=== PATIENT | male | born 1935 | race Caucasian/White ===

== ENCOUNTER → 2016-10-18 | Outpatient (CLI) | payer OTHER | END | disposition home or self-care (01) | LOC: CFH 08:35 | PROVIDERS: ATTEND Internal Medicine | DX: R91.8 Other nonspecific abnormal finding of lung field (principal); Z90.2 Acquired absence of lung [part of] | CPT/HCPCS: 71250 ==

== ENCOUNTER 2016-10-28 09:50 | Day surgery (SDC) | payer OTHER ==
[2016-10-27 10:10] LABS: ASPARTATE AMINO TRANSFERASE 8 U/L (15-37); BLOOD UREA NITROGEN 24 mg/dL (7-18)
[~2016-10-28] VITALS: Ht 172.7 cm; Wt 74.0 kg
[~2016-10-28 09:50] MED LIST: GABA600T2 PO; LISI1TAB3 PO; TRAV5DRO EACHEYE
[2016-10-28] MEDS ORDERED: LACTATED RINGERS 1,000 ML IV SCH (10:10)
[2016-10-28 10:16] VITALS: BP 128/80
[2016-10-28] MEDS ORDERED: LIDOCAINE 1%, 2ML ONE (10:17)
[2016-10-28] MEDS ORDERED: LIDOCAINE 1%, 2ML SQ PRN (10:30)
[2016-10-28] MEDS ORDERED: FENTANYL PF 100 MCG/2ML IV PRN (14:00)
[2016-10-28] MEDS ORDERED: PROMETHAZINE 25 MG/ML, 1ML IV PRN (14:00)
[2016-10-28] MEDS ORDERED: hydrALAzine 20 MG/ML, 1ML IV PRN (14:00)
[2016-10-28] MEDS ORDERED: morphine SULFATE 10 MG/ML, 1ML IV PRN (14:00)
[2016-10-28] MEDS ORDERED: LABETALOL 5MG/ML, 20ML IV PRN (14:00)
[2016-10-28] MEDS ORDERED: ONDANSETRON 2MG/ML, 2ML IVPush PRN (14:00)
[2016-10-28] MEDS ORDERED: ACETAMINOPHEN 325 MG TABLET PO PRN (14:00)
[2016-10-28] MEDS ORDERED: OXYcodone 5 MG/5 ML ORAL.SOL UDC PO PRN (14:00)
[2016-10-28] MEDS ORDERED: NEOSTIGMINE 1 MG/ML, 10ML ONE (16:18)
[2016-10-28] MEDS ORDERED: DEXAMETHASONE 4 MG/ML, 1ML ONE (16:18)
[2016-10-28] MEDS ORDERED: GLYCOPYRROLATE 0.2MG/1ML ONE (16:18)
[2016-10-28] MEDS ORDERED: ROCURONIUM 10 MG/ML ONE (16:18)
[2016-10-28] MEDS ORDERED: ONDANSETRON 2MG/ML, 2ML ONE (16:18)
[2016-10-28] MEDS ORDERED: PROPOFOL 10 MG/ML, 20ML ONE (16:18)
== END 2016-10-28 15:30 | disposition home or self-care (01) ==
LOC: OUT 09:50
PROVIDERS: ATTEND Internal Medicine
DX: J98.4 Other disorders of lung (principal); R91.8 Other nonspecific abnormal finding of lung field; Z88.1 Allergy status to other antibiotic agents
CPT/HCPCS: 31626; 31627; 31628; 36415; 71010; 80053; 88172; 88173; 88305; 88312; 88341; 88342; 93005; A4648; J1100; J2405; J2704; J2710; J3010; J3490; J7120; 31629; 76000; G0461

== ENCOUNTER → 2016-11-17 | Outpatient (CLI) | payer OTHER ==
[~2016-11-17] MED LIST changes: +GADOBUTROL 7.5 MMOL/7.5 ML PFS ONE
== END | disposition home or self-care (01) ==
LOC: CFH 08:25
PROVIDERS: ATTEND Internal Medicine
DX: I67.82 Cerebral ischemia (principal); R90.82 White matter disease, unspecified; R91.8 Other nonspecific abnormal finding of lung field
CPT/HCPCS: 70553; A9585

== ENCOUNTER 2016-11-30 08:47 | Day surgery (SDC) | payer OTHER ==
[~2016-11-30] VITALS: Ht 170.2 cm; Wt 73.0 kg
[~2016-11-30 08:47] MED LIST changes: -GADOBUTROL 7.5 MMOL/7.5 ML PFS ONE
[2016-11-30] MEDS ORDERED: SODIUM CHLORIDE 0.9% 1,000 ML IV SCH (09:15)
[2016-11-30 09:31] VITALS: BP 132/93
[2016-11-30] MEDS ORDERED: HYDR-879 PO (09:36)
== END 2016-11-30 14:40 ==
LOC: OUT 08:47
PROVIDERS: ATTEND Internal Medicine Hematology & Oncology
DX: C34.31 Malignant neoplasm of lower lobe, right bronchus or lung (principal); Z88.1 Allergy status to other antibiotic agents; Z87.442 Personal history of urinary calculi; Z98.890 Other specified postprocedural states; Z98.49 Cataract extraction status, unspecified eye; Z72.89 Other problems related to lifestyle
CPT/HCPCS: 32405; 71010; 77012; 88305; 99156; J2250; J3010; J7030; 99157; J2310

== ENCOUNTER 2016-12-27 19:48 | Inpatient (IN) | payer OTHER ==
[~2016-12-27] VITALS: Ht 170.2 cm; Wt 81.7 kg
[~2016-12-27 19:48] MED LIST changes: +HYDR-879 PO; +MORP10CA7 PO
[2016-12-27] MEDS ORDERED: LEVOFLOXACIN/PMX 750MG/150ML 150 ML IVPB ONE (20:00)
[2016-12-27] MEDS ORDERED: SODIUM CHLORIDE FLUSH 10ML SYR IVF ONE (20:00)
[2016-12-27] MEDS ORDERED: SODIUM CHLORIDE 0.9% 1,000ML IVBOLUS ONE ×3 (20:00→22:00)
[2016-12-27] MEDS ORDERED: ACETAMINOPHEN 650 MG SUPP PR ONE (20:00)
[2016-12-27] MEDS ORDERED: ONDANSETRON 2MG/ML, 2ML IVPush ONE (20:00)
[2016-12-27] MEDS ORDERED: PIPERACILLIN/TAZO/PMX 3.375GM 50 ML IVPB ONE (20:00)
[2016-12-27] MEDS ORDERED: VANCOMYCIN 1,500 MG in SODIUM CHLORIDE 0.9% 250 ML IV ONE (20:00)
[2016-12-27] MEDS ORDERED: VANCOMYCIN PER PHARMACY IV ONE (20:00)
[2016-12-27] MEDS ORDERED: PIPERACILLIN/TAZO/PMX 3.375GM 50 ML ONE (20:28)
[2016-12-27] MEDS ORDERED: LEVOFLOXACIN/PMX 750MG/150ML 150 ML ONE (20:28)
[2016-12-27] MEDS ORDERED: ONDANSETRON 2MG/ML, 2ML ONE (20:29)
[2016-12-27] MEDS ORDERED: ACETAMINOPHEN 325 MG TABLET ONE (20:29)
[2016-12-27] MEDS ORDERED: ACETAMINOPHEN 650 MG SUPP ONE (20:33)
[2016-12-27 20:39] LABS: HEMATOCRIT 33.4 % (39.2-51.8); HEMOGLOBIN 10.7 g/dL (13.7-18.0); WHITE BLOOD COUNT 18.8 x10^3/uL (3.4-10)
[2016-12-27 20:44] LABS: ABG COLLECTION SITE LEFT RADIAL; COLLATERAL CIRCULATION TESTING NORMAL
[2016-12-27 20:47] LABS: ASPARTATE AMINO TRANSFERASE 67 U/L (15-37); BLOOD UREA NITROGEN 64 mg/dL (7-18)
[2016-12-27 20:51] LABS: IS PT STATUS REG ER OR PRE ER? YES
[2016-12-27 20:56] LABS: DIFF TOTAL CELLS COUNTED 100 CELL DIFF
[2016-12-27] MEDS ORDERED: LIDOCAINE 1%, 20ML ONE (20:59)
[2016-12-27 21:01] LABS: LARGE PLATELETS 1+; VERIFY COUNTS? YES
[2016-12-27] MEDS ORDERED: HEPARIN 5,000 UNITS/ML, 1ML IV ONE (21:30)
[2016-12-27] MEDS ORDERED: FUROSEMIDE 40 MG/4 ML IV ONE (21:30)
[2016-12-27] MEDS ORDERED: HEPARIN 5,000 UNITS/ML, 1ML ONE (21:33)
[2016-12-27] MEDS ORDERED: HEPARIN 25,000 UNITS/500ML PMX 500 ML ONE (21:33)
[2016-12-27] MEDS ORDERED: FUROSEMIDE 40 MG/4 ML ONE (21:33)
[2016-12-27] MEDS ORDERED: NOREPINEPHRINE 4 MG in SODIUM CHLORIDE 0.9% 246 ML IV PRN ×2 (21:52→22:00)
[2016-12-27] MEDS: HEPARIN 25,000 UNITS/500ML PMX 500 ML IV PRN (21:55)
[2016-12-27] MEDS ORDERED: PHARMACY MAY ADJ FOR RENAL FX MC PRN (22:00)
[2016-12-27] MEDS ORDERED: SODIUM CHLORIDE 0.9%, 500ML IVBOLUS PRN ×2 (22:00)
[2016-12-27] MEDS ORDERED: VANCOMYCIN PER PHARMACY MC PRN (22:00)
[2016-12-27] MEDS ORDERED: PHARMACOKINETIC MONITORING MC PRN (23:30)
[2016-12-27] MEDS: ATORVASTATIN 80 MG TABLET PO SCH (23:49)
[2016-12-27] MEDS: HYDROCORTISONE 100 MG INJ. IV SCH (23:49)
[2016-12-27] MEDS: PANTOPRAZOLE 40 MG IV IV SCH (23:49)
[2016-12-28] VITALS: BP 76/42
[2016-12-28 01:45] LABS: ABG COLLECTION SITE RIGHT BRACHIAL
[2016-12-28 04:26] LABS: ABG COLLECTION SITE RIGHT RADIAL; COLLATERAL CIRCULATION TESTING NORMAL
[2016-12-28] MEDS ORDERED: ALBUTEROL SULFATE 2.5 MG/3 ML NPPB PRN ×2 (04:30→18:00)
[2016-12-28 04:43] LABS: IS PT STATUS REG ER OR PRE ER? NO
[2016-12-28 04:51] LABS: DIFF TOTAL CELLS COUNTED 100 CELL DIFF
[2016-12-28 04:53] LABS: BLOOD UREA NITROGEN 63 mg/dL (7-18); VERIFY COUNTS? YES
[2016-12-28 05:19] LABS: ASPARTATE AMINO TRANSFERASE 82 U/L (15-37); FERRITIN 638.5 ng/mL (26-388); TOTAL IRON BINDING CAPACITY 186 mcg/dL (250-450)
[2016-12-28] MEDS: HYDROCORTISONE 100 MG INJ. IV SCH ×3 (06:08→20:44)
[2016-12-28] MEDS: HEPARIN 5,000 UNITS/ML, 1ML IV PRN ×3 (06:09→20:43)
[2016-12-28] MEDS: ALBUTEROL SULFATE 2.5 MG/3 ML NPPB SCH ×2 (06:23→10:14)
[2016-12-28] MEDS ORDERED: TRAVOPROST OPHTH 0.004%, 2.5ML EACHEYE SCH (09:00)
[2016-12-28] MEDS ORDERED: PIPERACILLIN/TAZO/PMX 4.5GM 50 ML IVPB SCH (09:00)
[2016-12-28 11:04] LABS: IS PT STATUS REG ER OR PRE ER? NO
[2016-12-28] MEDS ORDERED: IRON SUCROSE COMPLEX 100MG/5ML IV ONE (14:00)
[2016-12-28] MEDS: NOREPINEPHRINE 4 MG in SODIUM CHLORIDE 0.9% 246 ML IV PRN ×2 (14:39→22:47)
[2016-12-28] MEDS: PIPERACILLIN/TAZO(ZOSYN) 2.25 GM in NS 50 ML IVPB SCH ×2 (16:49→22:43)
[2016-12-28 19:58] LABS: BLOOD UREA NITROGEN 57 mg/dL (7-18)
[2016-12-28] MEDS: SODIUM CHLORIDE 0.9% 1,000 ML IV SCH (20:44)
[2016-12-28] MEDS: PANTOPRAZOLE 40 MG IV IV SCH (20:44)
[2016-12-28] MEDS: ATORVASTATIN 80 MG TABLET PO SCH (20:44)
[2016-12-28] MEDS: TRAVOPROST OPHTH 0.004%, 2.5ML EACHEYE SCH (20:46)
[2016-12-28] MEDS: HEPARIN 25,000 UNITS/500ML PMX 500 ML IV PRN (22:46)
[2016-12-29] MEDS: HEPARIN 5,000 UNITS/ML, 1ML IV PRN (02:23)
[2016-12-29] MEDS: PIPERACILLIN/TAZO(ZOSYN) 2.25 GM in NS 50 ML IVPB SCH ×3 (04:49→17:00)
[2016-12-29] MEDS: SODIUM CHLORIDE 0.9% 1,000 ML IV SCH ×2 (04:50→13:37)
[2016-12-29 05:58] LABS: HEMATOCRIT 32.1 % (39.2-51.8); HEMOGLOBIN 10.4 g/dL (13.7-18.0); WHITE BLOOD COUNT 18.6 x10^3/uL (3.4-10)
[2016-12-29 06:10] LABS: ASPARTATE AMINO TRANSFERASE 32 U/L (15-37); BLOOD UREA NITROGEN 45 mg/dL (7-18)
[2016-12-29] MEDS: HYDROCORTISONE 100 MG INJ. IV SCH ×3 (06:41→22:09)
[2016-12-29] MEDS ORDERED: BISACODYL 10 MG SUPP PR PRN (09:00)
[2016-12-29] MEDS ORDERED: DOCUSATE 50 MG/5 ML, 10ML UDC PO SCH (09:00)
[2016-12-29] MEDS ORDERED: LACTULOSE 20 GM/30 ML UDC PO PRN (09:00)
[2016-12-29] MEDS: HYDROcodone/APAP 5/325 TABLET PO PRN ×3 (10:29→22:09)
[2016-12-29] MEDS: VANCOMYCIN 1,500 MG in SODIUM CHLORIDE 0.9% 250 ML IV SCH (13:37)
[2016-12-29] MEDS: PIPERACILLIN/TAZO/PMX 3.375GM 50 ML IV SCH ×2 (17:44→22:35)
[2016-12-29] MEDS: TRAVOPROST OPHTH 0.004%, 2.5ML EACHEYE SCH (21:00)
[2016-12-29] MEDS: ATORVASTATIN 80 MG TABLET PO SCH (21:13)
[2016-12-29] MEDS: SENNA/DOCUSATE TABLET PO SCH (21:14)
[2016-12-29] MEDS: PANTOPRAZOLE 40 MG IV IV SCH (22:09)
[2016-12-30] MEDS: SODIUM CHLORIDE 0.9% 1,000 ML IV SCH ×2 (01:42→10:53)
[2016-12-30] MEDS: HYDROcodone/APAP 5/325 TABLET PO PRN ×3 (02:20→21:01)
[2016-12-30 04:23] LABS: HEMATOCRIT 32.8 % (39.2-51.8); HEMOGLOBIN 10.6 g/dL (13.7-18.0); WHITE BLOOD COUNT 16.7 x10^3/uL (3.4-10)
[2016-12-30 04:35] LABS: BLOOD UREA NITROGEN 38 mg/dL (7-18)
[2016-12-30 04:41] LABS: ASPARTATE AMINO TRANSFERASE 27 U/L (15-37)
[2016-12-30 04:42] LABS: DIFF TOTAL CELLS COUNTED 100 CELL DIFF
[2016-12-30 04:45] LABS: VERIFY COUNTS? YES
[2016-12-30] MEDS: PIPERACILLIN/TAZO/PMX 3.375GM 50 ML IV SCH ×2 (05:28→11:10)
[2016-12-30] MEDS: HYDROCORTISONE 100 MG INJ. IV SCH (06:02)
[2016-12-30] MEDS: DOCUSATE 100 MG CAPSULE PO SCH (08:38)
[2016-12-30] MEDS: VANCOMYCIN 1,500 MG in SODIUM CHLORIDE 0.9% 250 ML IV SCH (12:40)
[2016-12-30] MEDS ORDERED: BUPIVACAINE/PF-EPI 0.5% 1:200K ONE (13:17)
[2016-12-30 13:42] LABS: OCCBLD OBC PASS
[2016-12-30] MEDS ORDERED: FENTANYL PF 250 MCG/5ML ONE (14:03)
[2016-12-30] MEDS ORDERED: GLYCOPYRROLATE 0.2MG/1ML ONE (14:23)
[2016-12-30] MEDS ORDERED: PROPOFOL 10 MG/ML, 20ML ONE (14:23)
[2016-12-30] MEDS ORDERED: ROCURONIUM 10 MG/ML ONE (14:23)
[2016-12-30] MEDS ORDERED: NEOSTIGMINE 1 MG/ML, 10ML ONE (14:23)
[2016-12-30] MEDS ORDERED: ACETAMINOPHEN 325 MG TABLET PO PRN (14:30)
[2016-12-30] MEDS ORDERED: ONDANSETRON 2MG/ML, 2ML IVPush PRN (14:30)
[2016-12-30] MEDS ORDERED: METOCLOPRAMIDE 5 MG/ML, 2ML IV PRN (14:30)
[2016-12-30] MEDS ORDERED: LABETALOL 5MG/ML, 20ML IV PRN (14:30)
[2016-12-30] MEDS ORDERED: PROMETHAZINE 25 MG/ML, 1ML IV PRN (14:30)
[2016-12-30] MEDS ORDERED: FENTANYL PF 100 MCG/2ML IV PRN (14:30)
[2016-12-30] MEDS ORDERED: hydrALAzine 20 MG/ML, 1ML IV PRN (14:30)
[2016-12-30] MEDS ORDERED: ALBUTEROL SULFATE 2.5 MG/3 ML NPPB PRN (14:30)
[2016-12-30] MEDS ORDERED: OXYcodone 5 MG/5 ML ORAL.SOL UDC PO PRN (14:30)
[2016-12-30] MEDS ORDERED: MEPERIDINE/PF 25MG/0.5ML IVPush PRN (14:30)
[2016-12-30] MEDS ORDERED: FENTANYL PF 100 MCG/2ML ONE (15:36)
[2016-12-30] MEDS ORDERED: ONDANSETRON 2MG/ML, 2ML ONE (15:36)
[2016-12-30] MEDS ORDERED: HYDROmorphone 1 MG/ML, 1ML ONE ×2 (15:36→16:08)
[2016-12-30] MEDS: HYDROmorphone 1 MG/ML, 1ML IV PRN ×4 (15:44→16:29)
[2016-12-30] MEDS: PIPERACILLIN/TAZO/PMX 4.5GM 100 ML IV SCH ×2 (16:58→22:25)
[2016-12-30] MEDS: MORPHINE SULFATE 4 MG/ML, 1ML IV PRN (19:07)
[2016-12-30 20:24] LABS: HEMATOCRIT 31.6 % (39.2-51.8); HEMOGLOBIN 10.2 g/dL (13.7-18.0); WHITE BLOOD COUNT 23.2 x10^3/uL (3.4-10)
[2016-12-30] MEDS: TRAVOPROST OPHTH 0.004%, 2.5ML EACHEYE SCH (21:00)
[2016-12-30] MEDS: SENNA/DOCUSATE TABLET PO SCH (21:00)
[2016-12-30] MEDS: ATORVASTATIN 80 MG TABLET PO SCH (21:01)
[2016-12-30 21:12] LABS: DIFF TOTAL CELLS COUNTED 100 CELL DIFF
[2016-12-30 21:15] LABS: VERIFY COUNTS? YES
[2016-12-30] MEDS: PANTOPRAZOLE 40 MG IV IV SCH (22:25)
[2016-12-31] MEDS: SODIUM CHLORIDE 0.9% 1,000 ML IV SCH ×3 (02:56→23:21)
[2016-12-31] MEDS: HYDROcodone/APAP 5/325 TABLET PO PRN ×5 (03:41→23:21)
[2016-12-31] MEDS: PIPERACILLIN/TAZO/PMX 4.5GM 100 ML IV SCH ×4 (04:52→23:21)
[2016-12-31 05:12] LABS: HEMATOCRIT 28.8 % (39.2-51.8); HEMOGLOBIN 9.4 g/dL (13.7-18.0); WHITE BLOOD COUNT 17.5 x10^3/uL (3.4-10)
[2016-12-31 05:18] LABS: BLOOD UREA NITROGEN 26 mg/dL (7-18)
[2016-12-31] MEDS: DOCUSATE 100 MG CAPSULE PO SCH (07:59)
[2016-12-31 14:24] VITALS: BP 119/76
[2016-12-31] MEDS: MORPHINE SULFATE 4 MG/ML, 1ML IV PRN ×3 (17:34→20:22)
[2016-12-31 20:00] VITALS: BP 120/64
[2016-12-31] MEDS: ATORVASTATIN 80 MG TABLET PO SCH (20:18)
[2016-12-31] MEDS: TRAVOPROST OPHTH 0.004%, 2.5ML EACHEYE SCH (21:00)
[2016-12-31] MEDS: PANTOPRAZOLE 40 MG IV IV SCH (21:57)
[2017-01-01 02:45] VITALS: BP 106/58
[2017-01-01] MEDS: HYDROcodone/APAP 5/325 TABLET PO PRN ×5 (05:16→22:53)
[2017-01-01] MEDS: PIPERACILLIN/TAZO/PMX 4.5GM 100 ML IV SCH ×4 (05:16→22:54)
[2017-01-01 08:18] VITALS: BP 129/76
[2017-01-01 08:40] LABS: HEMATOCRIT 28.6 % (39.2-51.8); HEMOGLOBIN 9.3 g/dL (13.7-18.0); WHITE BLOOD COUNT 17.6 x10^3/uL (3.4-10)
[2017-01-01 08:52] LABS: BLOOD UREA NITROGEN 16 mg/dL (7-18)
[2017-01-01] MEDS ORDERED: POTASSIUM CHLORIDE 20 MEQ TAB.ER.PRT PO ONE (09:30)
[2017-01-01] MEDS: DOCUSATE 100 MG CAPSULE PO SCH (10:21)
[2017-01-01] MEDS: MORPHINE SULFATE 4 MG/ML, 1ML IV PRN ×2 (10:21→20:37)
[2017-01-01] MEDS: SODIUM CHLORIDE 0.9% 1,000 ML IV SCH (10:22)
[2017-01-01 14:15] VITALS: BP 148/80
[2017-01-01 20:30] VITALS: BP 153/94
[2017-01-01] MEDS: PANTOPRAZOLE 40 MG IV IV SCH (20:37)
[2017-01-01] MEDS: ATORVASTATIN 80 MG TABLET PO SCH (20:37)
[2017-01-01] MEDS: TRAVOPROST OPHTH 0.004%, 2.5ML EACHEYE SCH (20:38)
[2017-01-02 00:57] VITALS: BP 128/78
[2017-01-02] MEDS ORDERED: GUAIFENESIN 100 MG/5 ML, 5ML UDC PO ONE (01:00)
[2017-01-02] MEDS: HYDROcodone/APAP 5/325 TABLET PO PRN ×4 (02:53→20:21)
[2017-01-02 04:51] LABS: HEMATOCRIT 26.9 % (39.2-51.8); HEMOGLOBIN 8.8 g/dL (13.7-18.0); WHITE BLOOD COUNT 19.3 x10^3/uL (3.4-10)
[2017-01-02 05:02] LABS: BLOOD UREA NITROGEN 12 mg/dL (7-18)
[2017-01-02] MEDS: PIPERACILLIN/TAZO/PMX 4.5GM 100 ML IV SCH ×4 (05:33→22:57)
[2017-01-02 05:41] LABS: DIFF TOTAL CELLS COUNTED 100 CELL DIFF
[2017-01-02 05:43] LABS: MICROCYTOSIS 1+
[2017-01-02 06:22] LABS: VERIFY COUNTS? YES
[2017-01-02 06:29] VITALS: BP 110/69
[2017-01-02 07:06] VITALS: BP 154/67
[2017-01-02] MEDS: ONDANSETRON 2MG/ML, 2ML IVPB PRN (07:10)
[2017-01-02] MEDS: MORPHINE SULFATE 4 MG/ML, 1ML IV PRN ×2 (07:10→19:48)
[2017-01-02] MEDS: POTASSIUM CHLORIDE 20 MEQ TAB.ER.PRT PO SCH ×2 (08:45→17:05)
[2017-01-02] MEDS: DOCUSATE 100 MG CAPSULE PO SCH (08:46)
[2017-01-02 13:49] VITALS: BP 144/88
[2017-01-02 19:23] VITALS: BP 126/83
[2017-01-02] MEDS: ATORVASTATIN 80 MG TABLET PO SCH (20:21)
[2017-01-02] MEDS: TRAVOPROST OPHTH 0.004%, 2.5ML EACHEYE SCH (20:22)
[2017-01-02] MEDS: GUAIFENESIN/DM 100-10MG, 5ML UDC PO PRN (21:52)
[2017-01-03] MEDS: HYDROcodone/APAP 5/325 TABLET PO PRN ×6 (00:24→23:20)
[2017-01-03 00:34] VITALS: BP 145/82
[2017-01-03] MEDS: PIPERACILLIN/TAZO/PMX 4.5GM 100 ML IV SCH ×4 (05:01→23:23)
[2017-01-03] MEDS: DOCUSATE 100 MG CAPSULE PO SCH (07:43)
[2017-01-03] MEDS ORDERED: VANCOMYCIN PER PHARMACY MC PRN (08:00)
[2017-01-03] MEDS ORDERED: PHARMACOKINETIC MONITORING MC PRN (09:00)
[2017-01-03 09:45] VITALS: BP 127/80
[2017-01-03] MEDS: VANCOMYCIN 1,700 MG in SODIUM CHLORIDE 0.9% 250 ML IV SCH (10:07)
[2017-01-03 15:00] VITALS: BP 130/84
[2017-01-03 20:00] VITALS: BP 127/80
[2017-01-03] MEDS: DRONABINOL 5 MG CAPSULE PO SCH (20:27)
[2017-01-03] MEDS: ATORVASTATIN 80 MG TABLET PO SCH (20:27)
[2017-01-03] MEDS: TRAVOPROST OPHTH 0.004%, 2.5ML EACHEYE SCH (20:27)
[2017-01-03] MEDS: GUAIFENESIN/DM 100-10MG, 5ML UDC PO PRN (23:20)
[2017-01-04 01:15] VITALS: BP 143/80
[2017-01-04] MEDS: HYDROcodone/APAP 5/325 TABLET PO PRN ×5 (04:10→23:50)
[2017-01-04] MEDS: PIPERACILLIN/TAZO/PMX 4.5GM 100 ML IV SCH ×4 (05:47→23:50)
[2017-01-04 06:04] LABS: HEMATOCRIT 26.1 % (39.2-51.8); HEMOGLOBIN 8.4 g/dL (13.7-18.0); WHITE BLOOD COUNT 15.1 x10^3/uL (3.4-10)
[2017-01-04 06:10] LABS: BLOOD UREA NITROGEN 7 mg/dL (7-18)
[2017-01-04] MEDS: ONDANSETRON 2MG/ML, 2ML IVPB PRN (07:25)
[2017-01-04 07:38] VITALS: BP 139/85
[2017-01-04] MEDS: DOCUSATE 100 MG CAPSULE PO SCH (09:27)
[2017-01-04] MEDS: DRONABINOL 5 MG CAPSULE PO SCH ×2 (09:27→20:43)
[2017-01-04] MEDS: VANCOMYCIN 1,700 MG in SODIUM CHLORIDE 0.9% 250 ML IV SCH (09:32)
[2017-01-04] MEDS ORDERED: POTASSIUM CHLORIDE 20 MEQ TAB.ER.PRT PO ONE (12:00)
[2017-01-04 12:59] VITALS: BP 164/104
[2017-01-04] MEDS ORDERED: ENOXAPARIN 30 MG/0.3 ML SQ SCH (15:00)
[2017-01-04 20:07] VITALS: BP 138/87
[2017-01-04] MEDS: TRAVOPROST OPHTH 0.004%, 2.5ML EACHEYE SCH (20:43)
[2017-01-04] MEDS: ATORVASTATIN 80 MG TABLET PO SCH (20:43)
[2017-01-05 00:35] VITALS: BP 124/72
[2017-01-05] MEDS: HYDROcodone/APAP 5/325 TABLET PO PRN ×4 (04:45→23:34)
[2017-01-05] MEDS: PIPERACILLIN/TAZO/PMX 4.5GM 100 ML IV SCH ×4 (05:59→23:34)
[2017-01-05 06:43] VITALS: BP 142/78
[2017-01-05 07:04] LABS: HEMOGLOBIN 8.8 g/dL (13.7-18.0); WHITE BLOOD COUNT 15.6 x10^3/uL (3.4-10)
[2017-01-05] MEDS ORDERED: REGADENOSON 0.4 MG/5 ML SYRINGE ONE (08:56)
[2017-01-05] MEDS: DOCUSATE 100 MG CAPSULE PO SCH (09:00)
[2017-01-05] MEDS: DRONABINOL 5 MG CAPSULE PO SCH ×2 (11:08→20:13)
[2017-01-05] MEDS: VANCOMYCIN 1,700 MG in SODIUM CHLORIDE 0.9% 250 ML IV SCH (11:09)
[2017-01-05 12:35] VITALS: BP 107/64
[2017-01-05] MEDS: ENOXAPARIN 40 MG/0.4 ML SQ SCH (14:54)
[2017-01-05] MEDS: ONDANSETRON 2MG/ML, 2ML IVPB PRN (16:05)
[2017-01-05 19:15] VITALS: BP 119/75
[2017-01-05] MEDS: ATORVASTATIN 80 MG TABLET PO SCH (20:13)
[2017-01-05] MEDS: TRAVOPROST OPHTH 0.004%, 2.5ML EACHEYE SCH (20:13)
[2017-01-06 00:30] VITALS: BP 136/81
[2017-01-06 04:37] LABS: HEMATOCRIT 25.9 % (39.2-51.8); HEMOGLOBIN 8.4 g/dL (13.7-18.0); WHITE BLOOD COUNT 14.8 x10^3/uL (3.4-10)
[2017-01-06 04:47] LABS: BLOOD UREA NITROGEN 7 mg/dL (7-18)
[2017-01-06 04:50] LABS: ASPARTATE AMINO TRANSFERASE 18 U/L (15-37)
[2017-01-06] MEDS: HYDROcodone/APAP 5/325 TABLET PO PRN ×5 (05:38→23:08)
[2017-01-06] MEDS: PIPERACILLIN/TAZO/PMX 4.5GM 100 ML IV SCH ×4 (05:38→23:55)
[2017-01-06] MEDS: ONDANSETRON 2MG/ML, 2ML IVPB PRN (07:26)
[2017-01-06 08:07] VITALS: BP 145/91
[2017-01-06] MEDS: DRONABINOL 5 MG CAPSULE PO SCH ×2 (08:34→20:10)
[2017-01-06] MEDS: DOCUSATE 100 MG CAPSULE PO SCH (08:34)
[2017-01-06] MEDS: ENOXAPARIN 40 MG/0.4 ML SQ SCH (14:34)
[2017-01-06 14:52] VITALS: BP 157/97
[2017-01-06 19:50] VITALS: BP 131/68
[2017-01-06] MEDS: ATORVASTATIN 80 MG TABLET PO SCH (20:10)
[2017-01-06] MEDS: TRAVOPROST OPHTH 0.004%, 2.5ML EACHEYE SCH (20:10)
[2017-01-07 01:20] VITALS: BP 137/82
[2017-01-07] MEDS: HYDROcodone/APAP 5/325 TABLET PO PRN ×5 (03:08→23:10)
[2017-01-07 05:31] LABS: HEMOGLOBIN 8.7 g/dL (13.7-18.0); WHITE BLOOD COUNT 17.9 x10^3/uL (3.4-10)
[2017-01-07 05:57] LABS: ASPARTATE AMINO TRANSFERASE 13 U/L (15-37); BLOOD UREA NITROGEN 9 mg/dL (7-18)
[2017-01-07] MEDS: PIPERACILLIN/TAZO/PMX 4.5GM 100 ML IV SCH ×4 (06:01→23:38)
[2017-01-07 07:32] VITALS: BP 142/81
[2017-01-07] MEDS: DRONABINOL 5 MG CAPSULE PO SCH ×2 (07:41→21:26)
[2017-01-07] MEDS: DOCUSATE 100 MG CAPSULE PO SCH (07:41)
[2017-01-07] MEDS ORDERED: ALBUTEROL SULFATE 2.5 MG/3 ML ONE (09:36)
[2017-01-07] MEDS ORDERED: ALBUTEROL SULFATE 2.5 MG/3 ML NPPB PRN (10:00)
[2017-01-07] MEDS ORDERED: POTASSIUM CHLORIDE 20 MEQ TAB.ER.PRT PO ONE ×2 (11:00→15:00)
[2017-01-07] MEDS ORDERED: ALBUMIN HUMAN 25% 100 ML IV ONE ×2 (12:00)
[2017-01-07] MEDS ORDERED: FUROSEMIDE 40 MG/4 ML IV ONE (12:30)
[2017-01-07 14:56] VITALS: BP 125/78
[2017-01-07] MEDS: ENOXAPARIN 40 MG/0.4 ML SQ SCH (15:05)
[2017-01-07 16:18] VITALS: BP 126/78
[2017-01-07] MEDS: MORPHINE SULFATE 4 MG/ML, 1ML IV PRN ×2 (18:35→23:06)
[2017-01-07 20:54] VITALS: BP 120/81
[2017-01-07] MEDS: TRAVOPROST OPHTH 0.004%, 2.5ML EACHEYE SCH (21:00)
[2017-01-07] MEDS: ATORVASTATIN 80 MG TABLET PO SCH (21:26)
[2017-01-08 02:50] VITALS: BP 146/80
[2017-01-08 04:27] LABS: HEMATOCRIT 24.8 % (39.2-51.8); HEMOGLOBIN 7.9 g/dL (13.7-18.0)
[2017-01-08] MEDS: MORPHINE SULFATE 4 MG/ML, 1ML IV PRN ×4 (04:29→22:55)
[2017-01-08 04:37] LABS: ASPARTATE AMINO TRANSFERASE 14 U/L (15-37); BLOOD UREA NITROGEN 9 mg/dL (7-18)
[2017-01-08] MEDS: PIPERACILLIN/TAZO/PMX 4.5GM 100 ML IV SCH ×2 (05:24→12:01)
[2017-01-08] MEDS: HYDROcodone/APAP 5/325 TABLET PO PRN ×4 (06:32→22:51)
[2017-01-08 07:01] VITALS: BP 153/82
[2017-01-08] MEDS: DOCUSATE 100 MG CAPSULE PO SCH (09:00)
[2017-01-08] MEDS: DRONABINOL 5 MG CAPSULE PO SCH ×2 (09:16→20:06)
[2017-01-08 12:59] VITALS: BP 151/78
[2017-01-08] MEDS: ENOXAPARIN 40 MG/0.4 ML SQ SCH (16:12)
[2017-01-08] MEDS ORDERED: LISINOPRIL 10 MG TABLET PO ONE ×2 (16:30→22:30)
[2017-01-08 18:45] VITALS: BP 163/102
[2017-01-08] MEDS: ATORVASTATIN 80 MG TABLET PO SCH (20:06)
[2017-01-08] MEDS: TRAVOPROST OPHTH 0.004%, 2.5ML EACHEYE SCH (20:07)
[2017-01-09 00:50] VITALS: BP 136/76
[2017-01-09] MEDS: MORPHINE SULFATE 4 MG/ML, 1ML IV PRN ×2 (02:18→06:33)
[2017-01-09] MEDS: HYDROcodone/APAP 5/325 TABLET PO PRN ×4 (03:54→20:36)
[2017-01-09 05:06] LABS: BLOOD UREA NITROGEN 12 mg/dL (7-18)
[2017-01-09 05:13] LABS: HEMATOCRIT 29.3 % (39.2-51.8); HEMOGLOBIN 9.3 g/dL (13.7-18.0); WHITE BLOOD COUNT 19.3 x10^3/uL (3.4-10)
[2017-01-09] MEDS: ASPIRIN 81 MG TABLET EC PO SCH (06:54)
[2017-01-09 07:03] VITALS: BP 159/98
[2017-01-09] MEDS: LISINOPRIL 10 MG TABLET PO SCH (08:38)
[2017-01-09] MEDS: DOCUSATE 100 MG CAPSULE PO SCH (08:39)
[2017-01-09] MEDS: DRONABINOL 5 MG CAPSULE PO SCH ×2 (08:39→20:36)
[2017-01-09] MEDS ORDERED: DOCUSATE 100 MG CAPSULE PO SCH (09:00)
[2017-01-09] MEDS ORDERED: ALBUMIN HUMAN 25% 100 ML IV ONE (13:00)
[2017-01-09] MEDS ORDERED: POTASSIUM CHLORIDE 20 MEQ TAB.ER.PRT PO ONE (13:00)
[2017-01-09 13:10] VITALS: BP 152/91
[2017-01-09] MEDS ORDERED: FUROSEMIDE 40 MG/4 ML IV ONE (13:30)
[2017-01-09] MEDS: ENOXAPARIN 40 MG/0.4 ML SQ SCH (15:35)
[2017-01-09 19:18] VITALS: BP 148/88
[2017-01-09] MEDS: TRAVOPROST OPHTH 0.004%, 2.5ML EACHEYE SCH (20:34)
[2017-01-09] MEDS: ATORVASTATIN 80 MG TABLET PO SCH (20:35)
[2017-01-10] MEDS: HYDROcodone/APAP 5/325 TABLET PO PRN ×4 (00:54→16:30)
[2017-01-10 01:19] VITALS: BP 158/93
[2017-01-10] MEDS: MORPHINE SULFATE 4 MG/ML, 1ML IV PRN ×2 (04:15→08:47)
[2017-01-10 05:06] LABS: HEMATOCRIT 27.5 % (39.2-51.8); HEMOGLOBIN 8.6 g/dL (13.7-18.0); WHITE BLOOD COUNT 16.3 x10^3/uL (3.4-10)
[2017-01-10 05:17] LABS: BLOOD UREA NITROGEN 12 mg/dL (7-18)
[2017-01-10 05:22] LABS: ASPARTATE AMINO TRANSFERASE 13 U/L (15-37)
[2017-01-10] MEDS: ASPIRIN 81 MG TABLET EC PO SCH (06:00)
[2017-01-10 07:35] VITALS: BP 154/88
[2017-01-10] MEDS: DOCUSATE 100 MG CAPSULE PO SCH (08:21)
[2017-01-10] MEDS: DRONABINOL 5 MG CAPSULE PO SCH (08:33)
[2017-01-10] MEDS: LISINOPRIL 10 MG TABLET PO SCH (08:33)
[2017-01-10] MEDS ORDERED: ASPI-621 PO (10:50)
[2017-01-10] MEDS ORDERED: ATOR80TA75 PO (10:50)
[2017-01-10] MEDS ORDERED: PRED10TA PO (10:50)
[2017-01-10] MEDS ORDERED: GUAI5SYR PO (10:50)
[2017-01-10] MEDS ORDERED: DRON5CAP15 PO (10:50)
[2017-01-10] MEDS ORDERED: ENOX40SY4 SQ (10:50)
[2017-01-10] MEDS ORDERED: LISI-167 PO (10:50)
[2017-01-10 12:30] VITALS: BP 136/81
[2017-01-10] MEDS: ENOXAPARIN 40 MG/0.4 ML SQ SCH (15:00)
== END 2017-01-10 17:30 | DRG 853 ==
LOC: ED 21:00 → EDIP 21:52 → ICU 23:06 → 4NOR 12-31 13:22 → 3NW 01-07 16:25
PROVIDERS: ADMIT Family Medicine; ATTEND Family Medicine
PROC: 02HV33Z Insertion of Infusion Device into Superior Vena Cava, Percutaneous Approach (ICD-10-PCS; 2016-12-27)
PROC: B548ZZA Ultrasonography of Superior Vena Cava, Guidance (ICD-10-PCS; 2016-12-27)
PROC: 0T9B70Z Drainage of Bladder with Drainage Device, Via Natural or Artificial Opening (ICD-10-PCS; 2016-12-28)
PROC: 0W9900Z Drainage of Right Pleural Cavity with Drainage Device, Open Approach (ICD-10-PCS; 2016-12-30)
PROC: 0BBK0ZX Excision of Right Lung, Open Approach, Diagnostic (ICD-10-PCS; principal; 2016-12-30 13:30)
DX: A41.9 Sepsis, unspecified organism (principal); J15.9 Unspecified bacterial pneumonia; I21.4 Non-ST elevation (NSTEMI) myocardial infarction; I26.99 Other pulmonary embolism without acute cor pulmonale; J96.01 Acute respiratory failure with hypoxia; N17.0 Acute kidney failure with tubular necrosis; R65.21 Severe sepsis with septic shock; I50.21 Acute systolic (congestive) heart failure; E43 Unspecified severe protein-calorie malnutrition; I95.9 Hypotension, unspecified; E27.40 Unspecified adrenocortical insufficiency; C34.91 Malignant neoplasm of unspecified part of right bronchus or lung; J44.0 Chronic obstructive pulmonary disease with (acute) lower respiratory infection; I11.0 Hypertensive heart disease with heart failure; E86.0 Dehydration; E87.5 Hyperkalemia; D50.9 Iron deficiency anemia, unspecified; E87.6 Hypokalemia; H40.9 Unspecified glaucoma; G62.9 Polyneuropathy, unspecified; I35.0 Nonrheumatic aortic (valve) stenosis; K59.00 Constipation, unspecified; Z79.2 Long term (current) use of antibiotics; Z80.1 Family history of malignant neoplasm of trachea, bronchus and lung; Z82.49 Family history of ischemic heart disease and other diseases of the circulatory system; Z85.118 Personal history of other malignant neoplasm of bronchus and lung; Z87.442 Personal history of urinary calculi; Z87.891 Personal history of nicotine dependence; Z88.2 Allergy status to sulfonamides
CPT/HCPCS: 36415; 36556; 36600; 51702; 70450; 71010; 76770; 78452; 80048; 80053; 80202; 81001; 82272; 82533; 82570; 82607; 82728; 82746; 82803; 83540; 83550; 83605; 83735; 83880; 83935; 84145; 84300; 84484; 85025; 85045; 85520; 85610; 85730; 86850; 86900; 87040; 87070; 87081; 87086; 87205; 87324; 93005; 93017; 93306; 93970; 94640; 96365; 96366; 96368; 96375; 99292; C1729; J1170; J1644; J1650; J1756; J1940; J1956; J2405; J2543; J2704; J2710; J2785; J3010; J3370; J3490; J7613; P9047; Q0167; A9502; C9113; C9898; J1720; J7030; J7050; J7512

== ENCOUNTER → 2017-01-19 | Outpatient (CLI) | payer OTHER ==
[~2017-01-19] MED LIST changes: +ASPI-621 PO; +ATOR-2 PO; +DRON5CAP15 PO; +ENOX40SY4 SQ; +GUAI5SYR PO; +LISI-167 PO; +OMNIPAQUE 350 MG/ML, 100ML BOTTLE ONE; +PRED10TA PO
== END | disposition home or self-care (01) ==
LOC: CFH 09:20
PROVIDERS: ATTEND Internal Medicine Hematology & Oncology
DX: N20.2 Calculus of kidney with calculus of ureter (principal); K76.89 Other specified diseases of liver; N28.9 Disorder of kidney and ureter, unspecified; R91.1 Solitary pulmonary nodule; C34.31 Malignant neoplasm of lower lobe, right bronchus or lung
CPT/HCPCS: 71260; 74177; Q9967

== ENCOUNTER → 2017-01-19 | Outpatient (CLI) | payer OTHER ==
[~2017-01-19] MED LIST changes: -OMNIPAQUE 350 MG/ML, 100ML BOTTLE ONE
== END | disposition home or self-care (01) ==
LOC: PETCFH 09:24
PROVIDERS: ATTEND Internal Medicine Hematology & Oncology
DX: C34.31 Malignant neoplasm of lower lobe, right bronchus or lung (principal); C34.11 Malignant neoplasm of upper lobe, right bronchus or lung
CPT/HCPCS: 78306; A9503